=== PATIENT | male | born 1965 | race Caucasian/White ===

== ENCOUNTER 2019-12-07 19:06 | Emergency (ER) | payer MEDICARE, OTHER ==
--- NOTE | 2019-12-07 19:53 | ERPHSYRPT ---
- History of Present Illness Time Seen by Provider: 12/07/19 19:47 Source: patient Exam Limitations: no limitations Patient Subjective Stated Complaint: pt c/o lt knee pain Triage Nursing Assessment: pt c/o lt knee pain, lt knee is swollen. Pt is able to move it but states, "the pain is so bad with movement". Pt had meniscus muscle removed 4 months ago and needs knee replacement. Physician History: 53 yo wm w L knee pain x1.5 yrs. Pt has had meniscal surgery4 months ago. He is from [place] and currently sees pain management in [place] but has run out of his narcotics. Pt denies acute trauma. Method of Injury: unknown (Chronic pain) Quality: constant, aching Severity of Pain-Max: severe Severity of Pain-Current: severe Lower Extremities Pain: knee: left Modifying Factors: Improves With: movement Associated Symptoms: other (Constant ache, but more pain w weight bearing) Allergies/Adverse Reactions: bee pollen Allergy (Severe, Verified 12/07/19 19:24) Anaphylactic Reaction mushroom Allergy (Severe, Verified 12/07/19 19:24) Anaphylactic Reaction ketorolac tromethamine [From Toradol] Allergy (Mild, Unverified 02/06/13 18:28) Penicillins Allergy (Mild, Unverified 02/06/13 18:28) acetaminophen [From Tylenol-Codeine #3] Adverse Reaction (Intermediate, Verified 12/07/19 19:24) Diarrhea codeine [From Tylenol-Codeine #3] Adverse Reaction (Intermediate, Verified 12/06 19:24) Diarrhea quetiapine fumarate [From Seroquel] Adverse Reaction (Mild, Unverified 12/07/19 19:24) Hives tramadol Adverse Reaction (Mild, Verified 12/07/19 19:24) Hives Home Medications: Albuterol 2.5 mg/3 ml Neb [Proventil 2.5 mg/3 ml Neb] 2.5 mg IH TID [History] Lisinopril 20 mg [Zestril 20 MG] 20 mg PO DAILY 02/06/13 [History] Rosuvastatin Calcium [Crestor] 20 mg PO DAILY 02/06/13 [History] Cyclobenzaprine HCl [Cyclobenzaprine HCl ER] 15 mg PO HS 12/07/19 [History] Fluticasone/Vilanterol [Breo Ellipta 100-25 Mcg INH] 1 puff IH DAILY PRN PRN [History] Hydrochlorothiazide 12.5 mg PO DAILY 12/07/19 [History] Ipratropium/Albuterol Sulfate [Combivent Inhaler] 2 puff IH BID 12/07/19 [ History] Meloxicam 15 mg PO HS 12/07/19 [History] Metformin HCl 500 mg [Glucophage 500 MG] 500 mg PO BID 12/07/19 [History] Tiotropium Harleigh [Spiriva] 1 puff IH TID 12/07/19 [History] Torsemide 10 mg PO DAILY 12/07/19 [History] Hx Tetanus, Diphtheria Vaccination/Date Given: Yes Hx Influenza Vaccination/Date Given: No Hx Pneumococcal Vaccination/Date Given: Yes Immunizations Up to Date: Yes Travel Risk - International Travel Have you traveled outside of the country in past 3 weeks: No Have you or anyone close to you been diagnosed with or: No Do your reside in a community with a known COVID-19 case?: Yes If Yes where:: [facility] - Coronavirus Screening Has patient experienced Coronavirus symptoms: No - Review of Systems Constitutional: No Fever, No Chills Eyes: No Symptoms Ears, Nose, & Throat: No Symptoms Respiratory: No Cough, No Dyspnea Cardiac: No Chest Pain, No Edema, No Syncope Abdominal/Gastrointestinal: No Abdominal Pain, No Nausea, No Vomiting, No Diarrhea Genitourinary Symptoms: No Dysuria Skin: No Rash Neurological: No Dizziness, No Focal Weakness, No Sensory Changes Psychological: No Symptoms Endocrine: No Symptoms Hematologic/Lymphatic: No Symptoms Immunological/Allergic: No Symptoms - Past Medical History Pertinent Past Medical History: Yes Neurological History: No Pertinent History ENT History: No Pertinent History Cardiac History: Congestive Heart Failure, High Cholesterol, Hypertension Respiratory History: Asthma, COPD, Emphysema Endocrine Medical History: Diabetes Type II, Hypothyroidism Musculoskeletal History: No Pertinent History GI Medical History: No Pertinent History History: No Pertinent History Psycho-Social History: Depression Male Reproductive Disorders: No Pertinent History - Past Surgical History Past Surgical History: Yes Neuro Surgical History: No Pertinent History Cardiac: No Pertinent History Respiratory: No Pertinent History Gastrointestinal: No Pertinent History Genitourinary: No Pertinent History Musculoskeletal: No Pertinent History Male Surgical History: No Pertinent History, Other Other Surgical History: meniscus muscle removed to lt knee - Social History Smoking Status: Current every day smoker How long have you smoked: 35 yrs Exposure to second hand smoke: Yes Drug Use: none Patient Lives Alone: No - Nursing Vital Signs Nursing Vital Signs: Initial Vital Signs Temperature 98.1 F 12/07/19 19:14 Pulse Rate 111 H 12/07/19 19:14 Respiratory Rate 20 12/07/19 19:14 Blood Pressure 156/105 12/07/19 19:14 O2 Sat by Pulse Oximetry 99 12/07/19 19:14 Pain Scale Pain Intensity 9 - Physical Exam General Appearance: no apparent distress Eyes, Ears, Nose, Throat Exam: normal ENT inspection, pharynx normal Neck Exam: normal inspection, non-tender, supple, full range of motion, No Brudzinski, No Kernig's Cardiovascular/Respiratory Exam: chest non-tender, normal breath sounds, tachycardia Gastrointestinal/Abdominal Exam: non-tender, soft, no organomegaly Back Exam: normal inspection, normal range of motion, CVA tenderness, No vertebral tenderness Hips Exam: bilateral: non-tender Knees Exam: left knee: no evidence of injury, other (Mild edema/No erythema/TTP laterally/FROM w pain/No instability/Good pedal pulse, distal sensation, and capillary return) Neuro/Tendon Exam: normal sensation, normal motor functions, normal tendon functions, responds to pain, no evidence tendon injury, No motor deficit, No sensory deficit Mental Status Exam: alert, oriented x 3, cooperative, No agitated, No uncooperative Skin Exam: normal color, warm, dry, No rash SpO2 Interpretation: normal SpO2: 99 O2 Delivery: Room Air - Course Nursing assessment & vital signs reviewed: Yes Ordered Tests: Active Orders 24 hr Category Date Time Status Isolation, Initiate & Maintain Q4H Care 12/07/19 19:23 Active - Progress Progress: unchanged Progress Note: 12/07/19 19:53 Related to pt that since he is currently a pain pt, I am not able to prescribe narcotics per state narcotic policy. Will prescribe Lodine prn. Pt to follow up with pain management in [place] if he decides to return. - Departure Departure Disposition: Home Clinical Impression: Chronic pain of left knee Condition: Stable Critical Care Time: No Referrals: MANNIE GUEVARA [ACTIVE STAFF] - Additional Instructions: Follow up with your pain management physician in [place] Stop Meloxicam, staret Lodine Return to ER as needed Prescriptions: Etodolac 400 mg [Lodine 400 mg] 400 mg PO BIDPRN PRN #10 tablet PRN Reason: Pain
[2019-12-07 20:06] VITALS: BP 114/73; PULSE 109; O2SAT 95
== END 2019-12-07 20:00 | disposition home or self-care (01) ==
LOC: ED 19:06
DX: M25.562 Pain in left knee (principal); G89.29 Other chronic pain; F45.42 Pain disorder with related psychological factors; M25.462 Effusion, left knee; Z79.899 Other long term (current) drug therapy; E78.00 Pure hypercholesterolemia, unspecified; I10 Essential (primary) hypertension; I50.9 Heart failure, unspecified; J44.9 Chronic obstructive pulmonary disease, unspecified; E03.9 Hypothyroidism, unspecified; F32.9 Major depressive disorder, single episode, unspecified; Z72.0 Tobacco use
CPT/HCPCS: 99283